=== PATIENT | male | born 1970 ===

== ENCOUNTER 2022-07-06 14:15 | Emergency (ER) | payer MEDICAID ==
[~2022-07-06] VITALS: Ht 180.3 cm; Wt 84.1 kg
[2022-07-06] MEDS ORDERED: pantoprazole 40mg IV 80 MG in normal saline 100ml IV soln 100 ML IV ONE (14:45)
[2022-07-06] MEDS ORDERED: pantoprazole 40MG/NS 100ML BAG 100 ML IV ONE (14:45)
[2022-07-06] MEDS ORDERED: LORazepam 2 mg/ml vial IV ONE (15:25)
[2022-07-06 15:39] LABS: BASOPHILS # (AUTO) 0.1 X10'3 (0-0.2); BASOPHILS % (AUTO) 0.7 % (0-1); EOSINOPHILS % (AUTO) 0.2 % (0-6); HEMATOCRIT 36.4 % (42.0-52.0); HEMOGLOBIN 12.3 g/dl (14.0-17.9); LYMPHOCYTES # (AUTO) 0.8 X10'3 (1.1-4.8); LYMPHOCYTES % (AUTO) 9.8 % (21-51); MEAN CORPUSCULAR HEMOGLOBIN 33.7 PG (27.0-31.0); MEAN CORPUSCULAR HGB CONC 33.8 g/dL (33.0-36.5); MEAN CORPUSCULAR VOLUME 99.5 FL (78-98); MEAN PLATELET VOLUME 7.9 FL (7.4-10.4); MONOCYTES # (AUTO) 0.6 X10'3 (0-0.9); MONOCYTES % (AUTO) 7.2 % (2-12); NEUTROPHILS % (AUTO) 82.1 % (42-75); PLATELET COUNT 187 X10'3 (140-440); RED BLOOD COUNT 3.66 X10'6 (4.70-6.10); RED CELL DISTRIBUTION WIDTH 13.6 % (11.5-14.5); WHITE BLOOD COUNT 8.5 X10'3 (4.5-11.0)
[2022-07-06 15:42] LABS: APTT 28 SECONDS (22-32)
[2022-07-06 15:44] LABS: ALANINE AMINOTRANSFERASE 62 U/L (12-78); ALBUMIN 3.5 G/DL (3.4-5.0); ALBUMIN/GLOBULIN RATIO 0.9 (1.1-1.5); ALKALINE PHOSPHATASE 95 IU/L (46-116); ANION GAP 13 (8-16); ASPARTATE AMINO TRANSFERASE 103 U/L (10-37); BILIRUBIN,TOTAL 1.1 MG/DL (0.1-1.0); BLOOD UREA NITROGEN 5 MG/DL (7-18); BUN/CREATININE RATIO 4.9 (5.4-32.0); CALCIUM 8.6 MG/DL (8.5-10.1); CHLORIDE 100 MMOL/L (99-107); CREATININE 1.03 MG/DL (0.60-1.10); GLUCOSE 86 MG/DL (70-104); POTASSIUM 3.3 MMOL/L (3.5-5.1); SODIUM 141 MMOL/L (135-145); TOTAL CARBON DIOXIDE 27.8 MMOL/L (24-32); TOTAL PROTEIN 7.5 G/DL (6.4-8.2); eGFR 75 ML/MIN
[2022-07-06] MEDS ORDERED: chlordiazePOXIDE 25mg capsule PO ONE (17:35)
[2022-07-06] MEDS ORDERED: CHLO25CA10 PO (17:41)
[2022-07-06 18:09] VITALS: BP 165/88
== END 2022-07-06 18:10 | disposition home or self-care (01) ==
LOC: ER 14:15
DX: F10.939 Alcohol use, unspecified with withdrawal, unspecified (principal); R07.81 Pleurodynia; R79.1 Abnormal coagulation profile; Z79.899 Other long term (current) drug therapy; Y90.9 Presence of alcohol in blood, level not specified
CPT/HCPCS: 36415; 71045; 80053; 82140; 85025; 85610; 85730; 86885; 86900; 86901; 93005; 96365; 96375; 99285; C9113; J2060; J3490